=== PATIENT | female | born 1955 | race African-American/Black ===

== ENCOUNTER 2022-12-17 08:36 | Outpatient (AMB) | payer BC, MEDICAID, SELFPAY ==
--- NOTE | 2022-12-17 08:42 | A.OFFVIS_ITS ---
Intake VS Expanded 12/17/22 08:45 12/23/22 11:12 Height 5 ft 3 in 5 ft 3 in Weight 155 lb 3.287 oz 155 lb BMI 27.5 27.5 Intake Visit Reasons: Pre-DM HPI Nutrition Presentation Details Pt presents for MNT for Pre DM. Pt was referred by ZANDRA Bonilla Pt reports working on diet modification, reducing on sugar intake. Pt has questions regarding carbohydrates and meal preparations. IIG-Zjzlbgd-Xw.Jeor Equation Height 5 ft 3 in Weight 155 lb Resting Metabolic Rate 1216.77 Calculated Activity Level Mild Activity Calories Needed to Maintain Weight 1673.06 Diagnosis Nutrition problem #1 food nutri know defi As related to (etiology) #1 diagnosis As evidenced by (sign/symptom) #1 no prior educ - nutri rec Most Recent Diabetes Results: No Data to Display Assessment & Plan Assessment & Plan (1) Pre-diabetes: Code(s): R73.03 - Prediabetes Plan wt : 77kg Est kcal needs as per MSJ: 1700 (40% carb, 30% protein/fat) Est fluid needs as per 25-30 ml/d: 1900 Est prot per day as per 1 g/kg bw: 77 Recommend fiber intake : 8-10 g per day and gradually increase to 25-28 g per day for women and 35-38 g for men or as tolerated Recommend sodium intake per day : less than 2000 mg Educated patient on: ( R = reviewed V = verbalizes understanding N/R = needs review N/A = not applicable * Food sources of carbohydrate, adequate serving sizes and its role in various health conditions: R * Differences between complex carbohydrates a simple carbohydrates, role of fiber in diet: R * Differences between types of fats and role in diet (mono on saturated fat fatty acids, saturated fatty acids, trans fats): R * Food sources of sodium in salt and healthy modifications for heart health in kidney health: R V R/V * Vitamins and minerals: R * Healthy plate method concept: R * Physical activity: Benefits a precaution: R * Hypoglycemia protocol (rule of 15): R * Dietary prevention of Hyperglycemia: R Patient Instructions: Follow healthy plate method at dinner, reduce total carb at meal to 45 g following healthy plate method Coding Level of Care Code Nutr Indiv Intake (62088) Diagnoses Pre-diabetes R73.03 Time Spent (min) 30
[2022-12-17 08:45] VITALS: BMI 27.5
[2022-12-23 11:12] VITALS: BMI 27.5
== END 2022-12-17 09:22 | disposition home or self-care (01) ==
LOC: HO.ENCR 08:36
PROVIDERS: PCP Physician Assistant; Visit Provider Dietitian, Registered
DX: R73.03 Prediabetes (principal)

== ENCOUNTER → 2022-12-17 08:36 | Outpatient (BNVA) | payer BC, MEDICAID, SELFPAY | PROVIDERS: PCP Physician Assistant; Visit Provider Dietitian, Registered | DX: R73.03 Prediabetes (principal); Z71.3 Dietary counseling and surveillance | CPT/HCPCS: 97802 ==

== ENCOUNTER 2023-03-17 08:12 | Outpatient (AMB) | payer BC, MEDICAID, SELFPAY ==
[2023-03-17 08:36] VITALS: BMI 22.5
--- NOTE | 2023-03-17 08:36 | A.OFFVIS_ITS ---
Intake VS Expanded 03/17/23 08:36 Height 5 ft 7 in Weight 143 lb 11.862 oz BMI 22.5 Intake Visit Reasons: pre dm HPI Nutrition Presentation Details Pt presents for MNT f/u for Pre DM. Pt reports doing well, choosing a variety of foods and reducing portion of starches/fried/sweets. Pt reports feeling good and motivated Pt reports varying foods and including higher fiber foods (fruit/veg, nuts) Including fish at least twice/week Beverages: water, low fat milk and milk alternatives (64 oz) Physical movement at work: 6 hours takes a daily multivitamin, vitamin E and vitamin D- reports no constipation no diarrhea reports feeling well, no concerns expressed Most Recent Diabetes Results: No Data to Display Assessment & Plan Assessment & Plan (1) Pre-diabetes: Code(s): R73.03 - Prediabetes Plan wt : 77kg (65 kg 03/17/2023) Est kcal needs as per MSJ: 1700 (40% carb, 30% protein/fat) Est fluid needs as per 25-30 ml/d: 1900 Est prot per day as per 1 g/kg bw: 65 Recommend fiber intake : 8-10 g per day and gradually increase to 25-28 g per day for women and 35-38 g for men or as tolerated Recommend sodium intake per day : less than 2000 mg Educated patient on: ( R = reviewed V = verbalizes understanding N/R = needs review N/A = not applicable * Food sources of carbohydrate, adequate serving sizes and its role in various health conditions: R * Differences between complex carbohydrates a simple carbohydrates, role of fiber in diet: R ,V * Differences between types of fats and role in diet (mono on saturated fat fatty acids, saturated fatty acids, trans fats): R ,V * Food sources of sodium in salt and healthy modifications for heart health in kidney health: R V R/V * Vitamins and minerals: R * Healthy plate method concept: R , V * Physical activity: Benefits a precaution: R , V * Hypoglycemia protocol (rule of 15): R * Dietary prevention of Hyperglycemia: R Patient Instructions: Continue following healthy plate method including a variety of foods Keep hydrated by having milk, water, diluted juice with water recommend for PCP to monitor blood work for Vit E due to Pt reporting taking vitamin E supplements for years, to prevent vitamin E toxicity Coding Level of Care Code Nutr Indiv Subseq (77271) Diagnoses Pre-diabetes R73.03 Time Spent (min) 30
== END 2023-03-17 09:09 | disposition home or self-care (01) ==
PROVIDERS: PCP Physician Assistant; Visit Provider Dietitian, Registered
DX: R73.03 Prediabetes (principal)

== ENCOUNTER → 2023-03-17 08:12 | Outpatient (BNVA) | payer BC, OTHER, SELFPAY | PROVIDERS: PCP Physician Assistant; Visit Provider Dietitian, Registered | DX: Z71.3 Dietary counseling and surveillance (principal); R73.03 Prediabetes | CPT/HCPCS: 97803 ==

== ENCOUNTER 2023-06-23 08:03 | Outpatient (AMB) | payer BC, MEDICAID, SELFPAY ==
[2023-06-23 08:36] VITALS: BMI 22.3
--- NOTE | 2023-06-23 08:36 | A.OFFVIS_ITS ---
Intake VS Expanded 06/23/23 08:36 Height 5 ft 7 in Weight 142 lb 10.225 oz BMI 22.3 Intake Visit Reasons: Pre DM/CONFIRMED HPI Nutrition Presentation Details Pt presents for MNT follow-up for Pre DM Pt reports keeping physically active at work, on her feet , walking around the store, going up and down this is there is at work for 6-8 hr per day. Pt reports doing well, eating a varied he of foods, choosing high-fiber foods and reducing on pastries and high sugar foods. Reports having 3 meals a day, following healthy plate method including fish twice/wk Reports reading food labels and needs review on meaning of% daily Valium Most Recent Diabetes Results: No Data to Display Assessment & Plan Assessment & Plan (1) Pre-diabetes: Code(s): R73.03 - Prediabetes Plan wt : 77kg (65 kg 03/17/2023), 65 kg (06/2023) Est kcal needs as per MSJ: 1700 (40% carb, 30% protein/fat) Est fluid needs as per 25-30 ml/d: 1900 Est prot per day as per 1 g/kg bw: 65 Recommend fiber intake : 8-10 g per day and gradually increase to 25-28 g per day for women and 35-38 g for men or as tolerated Recommend sodium intake per day : less than 2000 mg Educated patient on: ( R = reviewed V = verbalizes understanding N/R = needs review N/A = not applicable * Food sources of carbohydrate, adequate serving sizes and its role in various health conditions: R * Differences between complex carbohydrates a simple carbohydrates, role of fiber in diet: R ,V * Differences between types of fats and role in diet (mono on saturated fat fatty acids, saturated fatty acids, trans fats): R ,V * Food sources of sodium in salt and healthy modifications for heart health in kidney health: R * Review reading food labels, % daily Value : R commended calcium intake for 67-year-old woman recommended * Vitamins and minerals: R, v * Healthy plate method concept: R , V * Physical activity: Benefits a precaution: R , V * Hypoglycemia protocol (rule of 15): R * Dietary prevention of Hyperglycemia: R, v Patient Instructions: Continue working choosing a variety of foods following healthy plate method Include foods with calcium (yogurt, low sodium cheese, spinach, broccoli , milk, edamame, almonds)- recommendation is to 1200 mg per day Include foods with vitamin-D- recommendation is 600 IU per day Coding Level of Care Code Nutr Indiv Subseq (32375) Diagnoses Pre-diabetes R73.03 Time Spent (min) 30
== END 2023-06-23 09:13 | disposition home or self-care (01) ==
PROVIDERS: PCP Physician Assistant; Visit Provider Dietitian, Registered
DX: R73.03 Prediabetes (principal)

== ENCOUNTER → 2023-06-23 08:03 | Outpatient (BNVA) | payer BC, SELFPAY | PROVIDERS: PCP Physician Assistant; Visit Provider Dietitian, Registered | DX: R73.03 Prediabetes (principal); Z71.3 Dietary counseling and surveillance | CPT/HCPCS: 97803 ==

== ENCOUNTER 2023-12-29 08:03 | Outpatient (AMB) | payer BC, MEDICAID, SELFPAY ==
--- NOTE | 2023-12-29 08:33 | A.OFFVIS_ITS ---
VS Expanded 12/29/23 08:34 Height 5 ft 7 in Weight 151 lb 7.321 oz BMI 23.7 Intake Visit Reasons: pre dm/CONFIRMED Nutrition Presentation Details: Pt presents for MNT f/u for pre DM Pt reports most recent A1c at 5.8% (10/2023) Pt has questions regarding calcium supplements , reports she was diagnosed with osteopenia Pt reports trying different foods/recipes high in fiber water: 24 oz/d fruits: 2-3/d ve-4 serving/d dairy: 2-3 serving (varies between cow's and alternatives physical activity: 2 times a week (at the gym), + keeps active on a daily basis etoh: 1 serving/month BS Monitoring Most Recent Diabetes Results: No Data to Display Assessment & Plan Assessment & Plan (1) Pre-diabetes: Code(s): R73.03 - Prediabetes Category: Medical Plan wt : 77kg (65 kg 03/17/2023), 65 kg (06/2023), (68 kg - 12/2023) Est kcal needs as per MSJ: 1700 (40% carb, 30% protein/fat) Est fluid needs as per 25-30 ml/d: 1900 Est prot per day as per 1 g/kg bw: 65 Recommend fiber intake : 8-10 g per day and gradually increase to 25-28 g per day for women and 35-38 g for men or as tolerated Recommend sodium intake per day : less than 2000 mg Educated patient on: ( R = reviewed V = verbalizes understanding N/R = needs review N/A = not applicable * Food sources of carbohydrate, adequate serving sizes and its role in various health conditions: R * Differences between complex carbohydrates a simple carbohydrates, role of fiber in diet: R ,V * Differences between types of fats and role in diet (mono on saturated fat fatty acids, saturated fatty acids, trans fats): R ,V * Food sources of sodium in salt and healthy modifications for heart health in kidney health: R * Review reading food labels, % daily Value : R - calcium intake for 67-year-old woman discussed * Vitamins and minerals: R, v * Healthy plate method concept: R , V * Physical activity: Benefits a precaution: R , V * Hypoglycemia protocol (rule of 15): R * Dietary prevention of Hyperglycemia: R, v Patient Instructions: Have a variety of foods following healthy plate method Include food sources of calcium (spinach, chickpeas, sardines, nuts, seeds , calcium fortified foods/beverages - aim at 1200 mg of calcium per day Keep hydrated by having water with meals/snacks keep physically active Coding Level of Care Code Nutr Indiv Subseq (27313) Diagnoses Pre-diabetes R73.03 Time Spent (min) 30
[2023-12-29 08:34] VITALS: BMI 23.7
== END 2023-12-29 09:19 | disposition home or self-care (01) ==
PROVIDERS: PCP Physician Assistant; Visit Provider Dietitian, Registered
DX: R73.03 Prediabetes (principal)

== ENCOUNTER → 2023-12-29 08:03 | Outpatient (BNVA) | payer BC, SELFPAY | PROVIDERS: PCP Physician Assistant; Visit Provider Dietitian, Registered | DX: R73.03 Prediabetes (principal); Z71.3 Dietary counseling and surveillance | CPT/HCPCS: 97803 ==

== ENCOUNTER 2024-08-09 09:27 | Outpatient (AMB) | payer BC, SELFPAY ==
--- NOTE | 2024-08-09 09:39 | A.OFFVIS_ITS ---
VS Expanded 08/09/24 09:58 Height 5 ft 7 in Weight 152 lb 8.958 oz BMI 23.9 Intake Visit Reasons: pre DM Nutrition Presentation Details: Pt presents for MNT for pre DM Pt reports trying new recipes lower carb/high fiber Reports trying intermittent fasting , on and off food frequency Fluids: water, diluted juices with water Dairy: 2-3 /d starches 25 serving/d vegetables: 2-3 serving/d fish 1x/wk fruits: 1-3/d Physical activity exercise routine every other day , 30-40min + walking at work BS Monitoring Most Recent Diabetes Results: No Data to Display Assessment & Plan Assessment & Plan (1) Pre-diabetes: Code(s): R73.03 - Prediabetes Category: Medical Plan wt : 77kg (65 kg 03/17/2023), 65 kg (06/2023), (68 kg - 12/2023), 69 kg (08/03) Est kcal needs as per MSJ: 1700 (40% carb, 30% protein/fat) Est fluid needs as per 25-30 ml/d: 1900 Est prot per day as per 1 g/kg bw: 65 Recommend fiber intake : 8-10 g per day and gradually increase to 25-28 g per day for women and 35-38 g for men or as tolerated Recommend sodium intake per day : less than 2000 mg Educated patient on: ( R = reviewed V = verbalizes understanding N/R = needs review N/A = not applicable * Food sources of carbohydrate, adequate serving sizes and its role in various health conditions: R * Differences between complex carbohydrates a simple carbohydrates, role of fiber in diet: R ,V * Differences between types of fats and role in diet (mono on saturated fat fatty acids, saturated fatty acids, trans fats): R ,V * Food sources of sodium in salt and healthy modifications for heart health in kidney health: R * Review reading food labels, % daily Value : R - calcium intake for 67-year-old woman discussed * Vitamins and minerals: R, v * Healthy plate method concept: R , V * Physical activity: Benefits a precaution: R , V * Hypoglycemia protocol (rule of 15): R * Dietary prevention of Hyperglycemia: R, v Patient Instructions: Keep hydrated aim at 6-8 cups of low sugar beverages (water, fruit/herb infused flavored, low fat milk, decaf tea Continue watching portion of total carb , 30-45 g carb per meal or less, choose fiber rich foods (whole grains, legumes, vegetable fruits) Coding Level of Care Code Nutr Indiv Subseq (40897) Diagnoses Pre-diabetes R73.03 Time Spent (min) 30
[2024-08-09 09:58] VITALS: BMI 23.9
== END 2024-08-09 10:17 | disposition home or self-care (01) ==
LOC: HO.ENCR 09:28
PROVIDERS: PCP Physician Assistant; Visit Provider Dietitian, Registered
DX: R73.03 Prediabetes (principal)

== ENCOUNTER → 2024-08-09 09:27 | Outpatient (BNVA) | payer BC, SELFPAY | PROVIDERS: PCP Physician Assistant; Visit Provider Dietitian, Registered | DX: R73.03 Prediabetes (principal); Z71.3 Dietary counseling and surveillance | CPT/HCPCS: 97803 ==

== ENCOUNTER 2025-02-07 08:51 | Outpatient (AMB) | payer BC, SELFPAY ==
[2025-02-07 08:54] VITALS: BMI 24.6
--- NOTE | 2025-02-07 08:54 | A.OFFVIS_ITS ---
VS Expanded 02/07/25 08:54 Height 5 ft 7 in Weight 157 lb 2.328 oz BMI 24.6 Intake Visit Reasons: Pre DM Medication List - Last Reconciled 02/14/[address], LDN atorvastatin (Lipitor) 10 mg PO BEDTIME lisinopril 5 mg PO DAILY methocarbamol 500 mg PO BEDTIME Nutrition Presentation Details: Pt presents for MNT for Pre DM Physical activity: 3 times/wk , 30-45 min , combination of anaerobic/aerobic exercises Pt reports dietary indiscretion but recognizes importance to resume meal planning/portion sizes Assessment & Plan Assessment & Plan (1) Pre-diabetes: Code(s): R73.03 - Prediabetes Category: Medical Plan wt : 77kg (65 kg 03/17/2023), 65 kg (06/2023), (68 kg - 12/2023), 69 kg (08/03), 71 kg(03/05) Est kcal needs as per MSJ: 1700 (40% carb, 30% protein/fat) Est fluid needs as per 25-30 ml/d: 1900 Est prot per day as per 1 g/kg bw: 65 Recommend fiber intake : 8-10 g per day and gradually increase to 25-28 g per day for women and 35-38 g for men or as tolerated Recommend sodium intake per day : less than 2000 mg Educated patient on: ( R = reviewed V = verbalizes understanding N/R = needs review N/A = not applicable * Food sources of carbohydrate, adequate serving sizes and its role in various health conditions: R * Differences between complex carbohydrates a simple carbohydrates, role of fiber in diet: R ,V * Differences between types of fats and role in diet (mono on saturated fat fatty acids, saturated fatty acids, trans fats): R ,V * Food sources of sodium in salt and healthy modifications for heart health in kidney health: R * Review reading food labels, % daily Value : R - calcium intake for 67-year-old woman discussed * Vitamins and minerals: R, v * Healthy plate method concept: R , V * Physical activity: Benefits a precaution: R , V * Hypoglycemia protocol (rule of 15): R * Dietary prevention of Hyperglycemia: R, v Patient Instructions: Include omega 3 fatty acids: include fish at least twice a week, snack on unsalted nuts a couple of times a week Include non starchy vegetables at dinner, increasing fiber keep hydrated by having water with meals and snacks Coding Level of Care Code Nutr Indiv Subseq (76352) Diagnoses Pre-diabetes R73.03 Time Spent (min) 30
--- OUTSIDE RECORDS SUMMARY | 2025-02-07 09:20 | XMS_ITS | Encounter Summary ---
Author Organization [facility] Address [address] [place] [address] Care Team Providers Care Account Processor Name Role Phone Diego Piedra MD Primary Care Provider [phone] Encounter Details Date Type Department Care Team ([facility] st Contact Info) Description 01/14/2025 Telephone Internal Medicine - [place] 175 [facility] [address] [place] [phone] Diego Piedra MD [address] [phone] Social History Tobacco Use Types Packs/Day Years Used Date Smoking Tobacco: Former Smokeless Tobacco: Never Alcohol Use Standard Drinks/Week Comments Yes 0 (1 standard drink = 0.6 oz pur e alcohol) Comments No Sex and Gender Information Value Date Recorded Sex Assigned at Female 06/14/2024 3:51 PM EST Legal Sex Female 7:57 AM EST Gender Identity Female 06/14/2024 3:51 PM EST Sexual Orientation Straight 06/14/2024 3: 51 PM EST documented as of this encounter Progress Notes * Gabi Shoemaker MA - 01/14/2025 2:02 PM EDT Spoke to patient and she's aware. * Diego Piedra MD - 01/14/2025 12:57 PM EDT Will order the lab during the visit * Gabi Shoemaker MA - 01/14/2025 12:18 PM EDT Patient is asking for blood work orders for her upcoming appt. * Pamela Zepeda - 01/14/2025 11:44 AM EDT Needs lab orders for upcoming AWV on 01/27/25 Needs A1C to check blood sugars for prediabetic status Please all when ready at [phone] Ty documented in this encounter Plan of Treatment Upcoming Encounters Date Type Department Care Team (Late st Contact Info) Description 02/14/2025 10:45 AM EDT Office Visit Orthopedic Surgery - [place] [id number] [phone] Zack Templeton DPM [address] [phone] documented as of this encounter Visit Diagnoses Not on filedocumented in this encounter Care Teams Account Processor Relationship Specialty Start Date End Date Diego Piedra MD 175 [facility] [address] [place] [address] PCP - General 01/16/22 documented as of this encounter
--- OUTSIDE RECORDS SUMMARY | 2025-02-07 09:20 | XMS_ITS | Encounter Summary ---
Author Organization [facility] Address [address] [place] [address] Care Team Providers Care Automatic Trimming Sewer Name Role Phone Diego Piedra MD Primary Care Provider [phone] Encounter Details Date Type Department Care Team ([facility] st Contact Info) Description 02/01/2025 Telephone Internal Medicine - [place] 175 [facility] [address] [place] [address] Tremayne Zhu MA Social History Tobacco Use Types Packs/Day Years Used Date Smoking Tobacco: Former Smokeless Tobacco: Never Alcohol Use Standard Drinks/Week Comments Yes 0 (1 standard drink = 0.6 oz pur e alcohol) Housing Instability Answer Date Recorde d Are you worried that in the next 2 months you may not have stable housing? No 01/31/2025 Food Access & Nutrition Answer Date Rec orded Do you have access to a vari ety of food including fruits and vegetables? Yes 01/31/2025 Access to Healthcare Answer Date Record ed Within the last 3 months, ho gypsy many times did you visit the emergency department for your medical care? 9 01/31/2025 Health Literacy Answer Date Recorded How often do you need to hav e someone help you when you read instructions, pamphlets, or other written material from your doctor or pharmacy? Sometimes 01/31/2025 Caregiver: How often do you need to have someone help you when you read instructions, pamphlets, or other written material from your doctor or pharmacy? Not on file 01/31/2025 Financial Risk Answer Date Recorded How hard is it for you to pa y for the very basics like food, housing, medical care, and air conditioning / heating? Not very hard 01/31/2025 Transportation Answer Date Recorded Has the lack of transportati on kept you from meetings, work, or from getting things needed for daily living? Unable to respond 01/31/2025 Has the lack of transportati on kept you from medical appointments or from getting medications? Unable to respond 01/31/2025 Social Isolation Answer Date Recorded How often do you feel lonely or isolated from th ose around you? Rarely 01/31/2025 Food Risk Answer Date Recorded Within the past 12 months we worried whether our food would run out before we got money to buy more. Never true 01/31/2025 Within the past 12 months th e food we bought just didn't last and we didn't have money to get more. Never true 01/31/2025 Dependent Care Answer Date Recorded Do you need help finding or paying for care for your loved ones. For example, child protective services specialist or elderly care for an older adult? No 01/31/2025 Education Answer Date Recorded Do you think completing more education or training, like finishing a GED, going to college, or learning a trade, would be helpful for you? No 01/31/2025 Employment and Income Answer Date Recor ded During the last four weeks, have you been actively looking for work? No 01/31/2025 Living Situation Answer Date Recorded What is your living situation? Unrecognized valu e 01/31/2025 Comments No Sex and Gender Information Value Date Recorded Sex Assigned at Female 06/14/2024 3:51 PM EST Legal Sex Female 7:57 AM EST Gender Identity Female 06/14/2024 3:51 PM EST Sexual Orientation Straight 06/14/2024 3: 51 PM EST documented as of this encounter Progress Notes * ZANDRA Westfall - 02/07/2025 8:41 AM EDT Letter done and sent to her [employer] portal. * Tremayne Zhu MA - 02/04/2025 10:21 AM EDT Spoke to patient , patient can't live no more then 40 lbs at a time. Patient also requesting the letter to say that she is unable to work Friday . Friday and Fridaysafter 4pm because patient goes to Physical therapy [facility] called [employer] to help with strengthening . * ZANDRA Westfall - 02/03/2025 11:49 AM EDT I had asked her at the visit how much she could lift and she was unable to answer me. I wanted to know for the note so I could specify what not to carry over, ie 10 pounds or other weight?? * Tremayne Zhu MA - 02/03/2025 9:41 AM EDT Patient needs a letter for work stating she is unable to lift heavy (part of her job duties includelifting and carrying boxes ) . Patient currently going to [employer] a gym due to medical reasons ad trying to strengthen herself. * ZANDRA Westfall - 02/02/2025 8:46 AM EDT She had an appointment with me yesterday and was having a hard time explaining what the letter needed to say, I think because of the language barrier. Can you ask specifically what I need to write inthe letter. Thank you. * Diego Piedra MD - 02/01/2025 5:16 PM EDT Please provide her appointment to discuss about the letter. * Tremayne Zhu MA - 02/01/2025 4:05 PM EDT Patient requesting a letter of restriction for heavy lifting for work . documented in this encounter Plan of Treatment Upcoming Encounters Date Type Department Care Team (Late st Contact Info) Description 02/14/2025 10:45 AM EDT Office Visit Orthopedic Surgery - [place] [address] 175 [facility] [address] [place] [phone] Zack Templeton DPM [address] [phone] documented as of this encounter Visit Diagnoses Not on filedocumented in this encounter Additional Health Concerns Assessment Noted Time PHQ-9 Depression Total Score: 0 02/01/20 25 5:25 PM EDT documented as of this encounter Care Teams Automatic Trimming Sewer Relationship Specialty Start Date End Date Diego Piedra MD 175 [facility] 200 [place] [phone] PCP - General 01/16/22 documented as of this encounter
--- OUTSIDE RECORDS SUMMARY | 2025-02-07 09:20 | XMS_ITS | Clinical Summary ---
Author Organization [facility] Address [address] [place] [address] Phone Care Team Providers Care Salvage Mechanic Name Role Phone Diego Piedra MD Primary Care Provider [phone] Allergies No known active allergies Medications atorvastatin (LIPITOR) 10 mg tablet Take 1 tablet by mouth once daily 90 tablet 5 Active lisinopriL (PRINIVIL,ZESTR IL) 5 mg tablet Take 1 tablet by mouth once daily 90 tablet 5 Active methocarbamoL (ROBAXIN) 500 mg tablet Take 1 tablet (500 mg total) by mouth 3 (three) times a day if needed for muscle spasms for up to 10 days. 20 tablet 5 02/02/20 25 Discontinu ed(Therapy completed) Active Problems Problem Noted Date Diagnosed Date Prediabetes 02/01/2025 Assessment & Plan (02/02/2025 8:42 AM EDT): Orders: Hemoglobin A1c; Future Foot pain, bilateral 06/10/2022 Hearing deficit, bilateral 03/12/2022 Osteoarthritis 03/12/2022 Hypertension Overview (02/01/2025): DX:Hypertension Assessment & Plan (02/02/2025 8:42 AM EDT): Orders: Comprehensive metabolic panel; Future Microalbumin creatinine urine ratio; Future Magnesium; Future Hyperlipidemia Overview (02/01/2025): DX:Hyperlipidemia Assessment & Plan (02/02/2025 8:42 AM EDT): Orders: Comprehensive metabolic panel; Future Lipid panel with reflex to direct LDL; Future Encounters Date Type Department Care Team Description 02/01/2025 3:30 PM EDT Office Visit Internal Medicine [address] [address] Shirin Zavala PA Routine general medical examination at a health care facility (Primary Dx); Primary hypertension; Pure hypercholesterolemi a; Prediabetes; Health care maintenance; Vitamin D deficiency 02/01/2025 Telephone Internal Medicine [address] [address] Tremayne Zhu MA 01/14/2025 Telephone Internal Medicine [address] [address] Diego Piedra MD 01/04/2025 Telephone Internal Medicine [facility] [address] [address] Kali Poe MA 01/04/2025 Telephone Internal Medicine [address] [address] Kali Poe MA 01/03/2025 7:30 AM EDT - 01/03/2025 11:59 PM EDT Hospital Encounter Radiology Department - [address] [address] Encounter for screening mammogram for malignant neoplasm of breast Discharge Disposition: Home or Self Care from Last 3 Months Surgical History Surgery Date Site/Laterality Comments CATARACT EXTRACTION Bilateral PROCEDURE: HISTORICAL CATARACT REMOVAL HYSTERECTOMY 11/2020 PROCEDURE: HISTORICAL HYSTERECTOMY BREAST SURGERY PROCEDURE: RI UNLISTED PROCEDURE BREAST; COMMENT: breast lift Medical History Medical History Date Comments Hypertension 03/12/2022 DX:Hypertension Hyperlipidemia 03/12/2022 DX:Hyperlipidemi a Osteoarthritis 03/12/2022 DX:Osteoarthriti s Hearing deficit, bilateral 03/12/2022 DX:He aring deficit, bilateral Family History Medical History Relation Name Comments No Known Problems Father Other: heart Mother Hypertension Sister Breast cancer Neg Hx Ovarian cancer Neg Hx Relation Name Status Comments Daughter Alive Father Mother Sister Alive Social History Tobacco Use Types Packs/Day Years [...] ed Within the last 3 months, ho w many times did you visit the emergency [...] care for your loved ones. For example, registered nurse maternal child or elderly care for an older adult? [...] Orientation Straight 06/14/2024 3: 51 PM EST Obstetrics History Para Term AB IAB SAB Ectopic Multiple Livin g Live Births 2 2 2 2 Date Outcome GA Total Labor Labor/2nd/3rd Weight Sex Type Anes PTL Delia A1 A5 Name Clin Term Term Last Filed Vital Signs Vital Sign Reading Time Taken Comments Blood Pressure 132/62 02/01/2025 3:30 PM EDT Pulse 80 02/01/2025 3:30 PM EDT Temperature 36.6 C (97.8 F) 02/01/2025 3:30 PM EDT Respiratory Rate 18 06/14/2024 10:33 AM EST Oxygen Saturation 98% 02/01/2025 3:30 PM EDT Inhaled Oxygen Concentration - - Weight 71.7 kg (158 lb) 02/01/2025 3:30 PM EDT Height 160 cm (5' 3 ) 02/01/2025 3:30 PM EDT Body Mass Index 27.99 02/01/2025 3:30 PM EDT Plan of Treatment Upcoming Encounters Date Type Department Care Team (Late st Contact Info) Description 02/14/2025 10:45 AM EDT Office Visit Orthopedic Surgery - [place] [address] [address] Zack Templetno, DPM [address] [address] Health Maintenance Due Date Last Done Comments DTaP,Tdap,and Td Vaccines (1 - Tdap) 1975 Zoster Vaccines (1 of 2) 2006 Cholesterol Screening (Lipid Panel) 04/14/2022 Hepatitis C Screening 04/14/2022 Hypertension/CHF/CAD Annual BMP Blood Test 06/10/2023 COVID-19 Vaccine (1 - season) 2025 Influenza Vaccine (#1) 2025 06/09/2023 Social Influencers of Health Screening 01/31/2026 01/31/2025 Falls Risk Assessment 02/01/2026 02/01/2025 Medicare Annual Wellness Visit 02/01/2026 02/01/2025 Breast Cancer Screening 01/03/2027 01/04/20, 12/29/2023, 12/29/2023, Additional history exists RSV Immunization Adult Patients (1 - 1-dose 75+ series) 2031 Colorectal Cancer Screening: Colonoscopy 01/20/2033 01/20/2023 Osteoporosis Screening (Bone Density Screening) 06/27/2033 06/27/2023 Pneumococcal Vaccine: 50+ Years Completed 06/09/2023 Depression Screening Completed 01/31/2025 HIB Vaccines Aged Out No longer eligi ble based on patient's age to complete this topic HPV Vaccines Aged Out No longer eligi ble based on patient's age to complete this topic Hepatitis A Vaccines Aged Out No long er eligible based on patient's age to complete this topic Hepatitis B Vaccines Aged Out No long er eligible based on patient's age to complete this topic IPV Vaccines Aged Out No longer eligi ble based on patient's age to complete this topic MMR Vaccines Aged Out No longer eligi ble based on patient's age to complete this topic Meningococcal ACWY Vaccine Aged Out N o longer eligible based on patient's age to complete this topic Meningococcal B Vaccine Aged Out No l onger eligible based on patient's age to complete this topic RSV Immunization Patients Under 20 months Aged Out No longer eligible based on patient's age to complete this topic Varicella Vaccines Aged Out No longer eligible based on patient's age to complete this topic Procedures Procedure Name Priority Date/Time Associated Diagnosis Comments MG MAMMO DIGITAL SCREENING W GABRIELE BILAT Routine 01/03/2025 7:51 AM EDT Encounter for screening mammogram for malignant neoplasm of breast ELLIE DEXA AXIAL SKELETON Routine 06/27/2023 7:48 AM EST Other specified disorders of bone density and structure, other site HM COLONOSCOPY Routine 01/20/2023 from Last 3 Months or Most Recently Relevant to Health Maintenance Results * MG Mammo Digital Screening w Gabriele bilat (01/03/2025 7:51 AM EDT) Anatomical Region Laterality Modality Breast Bilateral Mammography 01/04/2025 11:2 7 AM EDT Impressions 01/04/2025 11:32 AM EDT Benign. BI-RADS CATEGORY: 2 - BENIGN RECOMMENDATION: Screening bilateral mammogram is recommended in 1 year. Mammo Location: [facility], [address] [place] [address], [address], . -------- FINAL REPORT -------- Dictated By: Jessica Rosales Dictated Date: 01/04/2025 11:27 ET Assigned Physician: Jessica Rosales Reviewed and Electronically Signed By: Jessica Rosales Signed Date: 01/04/2025 11:32 ET Workstation ID: [id number] Transcribed By: Self Edit Transcribed Date: 01/04/2025 11:27 ET Narrative 01/04/2025 11:32 AM EDT CLINICAL: 69 years old, Female, routine annual exam. COMPARISON: Mammograms dating back to 08/22/2021 with most recent of 12/29/2023. TECHNIQUE: Bilateral MLO and CC views were obtained digitally with 3-D mammogram (digital breast tomosynthesis). Computer-aided detection was utilized in evaluation of this exam (CAD). FINDINGS: There is no evidence of suspicious mass or architectural distortion. No worrisome calcifications are evident. Benign focal asymmetries in both outer breasts are unchanged. There has been no significant change from prior exam(s). BREAST DENSITY: B - There are scattered areas of fibroglandular density. Procedure Note Jessica Rosales MD - 01/04/2025 CLINICAL: 69 years old, Female, routine annual exam. COMPARISON: Mammograms dating back to 08/22/2021 with most recent of12/29/2023. TECHNIQUE: Bilateral MLO and CC views were obtained digitally with 3-Dmammogram (digital breast tomosynthesis). Computer-aided detection wasutilized in evaluation of this exam (CAD). FINDINGS: There is no evidence of suspicious mass or architectural distortion. Noworrisome calcifications are evident. Benign focal asymmetries in bothouter breasts are unchanged. There has been no significant change fromprior exam(s). BREAST DENSITY: B - There are scattered areas of fibroglandular density. IMPRESSION: Benign. BI-RADS CATEGORY: 2 - BENIGN RECOMMENDATION: Screening bilateral mammogram is recommended in 1 year. Mammo Location: [facility], [address] [place] [address], [address], . -------- FINAL REPORT -------- Dictated By: Jessica Rosales Dictated Date: 01/04/2025 11:27 ET Assigned Physician: Jessica Rosales Reviewed and Electronically Signed By: Jessica Rosales Signed Date: 01/04/2025 11:32 ET Workstation ID: [id number] Transcribed By: Self Edit Transcribed Date: 01/04/2025 11:27 ET Charmaine Peters CNM IMG BI PROCEDURES Final Resul t * ELLIE DEXA AXIAL SKELETON (06/27/2023 7:48 AM EST) Anatomical Region Laterality Modality Mammography 06/27/2023 7:14 AM EST Narrative 06/27/2023 7:48 AM EST [facility] Diagnostic Imaging Department [address] [place] [address] Patient: ELIZA GIORDANO/Age/Sex: 1955 - 67 - F Unit#: [id number] Location/Status: SPDIMAM/REG CLI Mnemonic/Ordering Site: MAMDEXAAX/SPMAM Ordering Physician: DIEGO PIEDRA Ellie Dexa Axial Skeleton - 06/27/23742 Report Status:Signed HISTORY: The patient is a 67-year-old postmenopausal female with clinical concern for metabolic bone disease. FINDINGS: Dual energy x-ray absorptiometry of the lumbar spine and femurs is performed. The mean bone mineral density at L1-2 is 0.930 gm/cm2 which is 80% of that of young normals and 96% of that of age matched controls. This yields a T- score of -2.0 and a Z-score of -0.4 which is diagnostic of osteopenia. The mean bone mineral density of the femurs bilaterally is 0.866 gm/cm2 which is 86% of that of young normals and 102% of that of age matched controls. This yields a T-score of -1.1 and a Z-score of 0.2 which is diagnostic of osteopenia. IMPRESSION: 1. Osteopenia. 2. FRAX analysis yields a 10-year probability of major osteoporotic fracture of 4.9% and a 10-year probability of hip fracture of 0.5%. Code 24077 Dictating Physician: CHAN OLMOS MD Electronically Signed by: CHAN OLMOS MD Dic Date/Time: 06/27/23747 Sign date/Time: 06/27/23747 Procedure Note Chan Olmos MD - 12/29/2023 [facility] Diagnostic Imaging Department [address] [place] [address] Patient: ELIZA GIORDANO /Age/Sex: 1955 - 67 - F Unit#: [id number] Location/Status: SPDIMAM/REG CLI Mnemonic[facility] Ordering Physician: DIEGO PIEDRA [facility] Dexa Axial Skeleton - 06/27/23742 Report Status:Signed HISTORY: The patient is a 67-year-old postmenopausal female withclinical concern for metabolic bone disease. FINDINGS: Dual energy x-ray absorptiometry of the lumbar spine and femursis performed. The mean bone mineral density at L1-2 is 0.930 gm/cm2 which is80% of that of young normals and 96% of that of age matched controls. This yieldsa T- score of -2.0 and a Z-score of -0.4 which is diagnostic of osteopenia. The mean bone mineral density of the femurs bilaterally is 0.866 gm/hu3qifwf is 86% of that of young normals and 102% of that of age matched controls.This yields a T-score of -1.1 and a Z-score of 0.2 which is diagnostic ofosteopenia. IMPRESSION: 1. Osteopenia. 2. FRAX analysis yields a 10-year probability of major osteoporoticfracture of 4.9% and a 10-year probability of hip fracture of 0.5%. Code 04015 Dictating Physician: CHAN OLMOS MD Electronically Signed by: CHAN OLMOS MD Dic Date/Time: 06/27/23747 Sign date/Time: 06/27/23747 Diego Piedra MD IM BI PROCEDURES Final Result * Colonoscopy (01/20/2023) Colonoscopy abstract [facility] Anatomical Region Laterality Modality Other us Historical Provider HEALTH MAINTENANCE Final Result from Last 3 Months or Most Recently Relevant to Health Maintenance Insurance [place]IC[place] Care Teams Salvage Mechanic Relationship Specialty Start Date End Date Diego Piedra MD [address] [place] [phone] PCP - General 01/16/22
--- OUTSIDE RECORDS SUMMARY | 2025-02-07 09:20 | XMS_ITS | Encounter Summary ---
Author Organization [facility] [employer] Address [address] [place] [address] Care Team Providers Care Slab Miller Operator Name Role Phone Diego Piedra MD Primary Care Provider [phone] Reason for Visit * Reason Onset Date Comments Forms: Handicap Parking 01/04/2025 Encounter Details Date Type Department Care Team ([facility] st Contact Info) Description 01/04/2025 Telephone Internal Medicine [facility] [address] [facility] [address] [place] [phone] Kali Poe MA Social History Tobacco Use Types Packs/Day [...] loved ones. For example, child protective services social worker or elderly care for an older adult? [...] as of this encounter Progress Notes * Marzena Palm MA - 01/05/2025 4:20 PM EDT Patient needs to be seen before completing form. NOV 01/27/25 * Kali Poe MA - 01/04/2025 9:13 AM EDT Patient dropped off residential handicap parking application. Call for picker packer: [phone] documented in this encounter Plan of Treatment Upcoming Encounters Date Type Department Care Team ([facility] st Contact Info) Description 02/14/2025 10:45 AM EDT Office Visit Orthopedic Surgery - [place] [address] [address] Zack Templeton DPJuan [address] [address] documented as of this encounter Visit Diagnoses Not on filedocumented in this encounter Care Teams Slab Miller Operator Relationship Specialty Start Date End Date Diego Piedra MD [address] [facility] [address] [place] [address] PCP - General 01/16/22 documented as of this encounter
== END 2025-02-07 09:30 | disposition home or self-care (01) ==
LOC: HO.ENCR 08:52
PROVIDERS: PCP Physician Assistant; Visit Provider Dietitian, Registered
DX: R73.03 Prediabetes (principal)

== ENCOUNTER → 2025-02-07 08:51 | Outpatient (BNVA) | payer BC, SELFPAY | PROVIDERS: PCP Physician Assistant; Visit Provider Dietitian, Registered | DX: R73.03 Prediabetes (principal) | CPT/HCPCS: 97803 ==

== ENCOUNTER 2025-04-25 11:05 | Outpatient (AMB) | payer BC, MEDICAID, SELFPAY ==
[2025-04-25 11:13] VITALS: BMI 24.3
--- NOTE | 2025-04-25 11:13 | A.PHYSOV ---
Vital Signs 04/25/25 11:13 Height 5 ft 7 in Weight 155 lb BMI 24.3 Intake Visit Reasons: NPV Kay Ref- left sided sciatica Intake Note: Patient is a 69 year old female here today for a new patient office visit. Patient is having left sided sciatica pain. Corporate Accountant Required: Yes Corporate Accountant Name: arielle #[id number] Allergies No Known Allergies Allergy (Verified 04/25/25 11:15) HPI Comments Details: History of Present Illness, hourly sign language interpreter [id number] The patient is a 69 year old female presenting for evaluation of back pain with radiation into the left leg. She reports a long-standing history of intermittent pain that originates in her left buttock and radiates down to her foot. The pain is not currently present, with the last episode occurring approximately four days ago. About six years ago, she underwent physical therapy with electrical stimulation in [place]. She currently sees a chiropractor once a month for adjustments, exercises three times a week, and is not taking any analgesics for the pain. She also reports intermittent heel pain and a sensation of needles in her fingers, which occurs at times while she is walking at work. Patient denies any pain today. I reviewed the referring provider's no prior to consultation. Pain Description - Onset: The patient reports the pain began a long time ago. - Location: The pain is located in the left buttock. - Radiation: The pain radiates down to the left foot. - Character: The character of the back pain was not described, but she notes a separate sensation of needles in her fingers. - Timing: The pain is intermittent; she is not currently experiencing it and the last episode was about four days prior to the visit. - Exacerbating Factors: She sometimes feels pressure at work. - Relieving Factors: She undergoes monthly chiropractic adjustments. [facility] Social History (Updated 04/21/25 @ 09:43 by Darcy Scott MA) Alcohol intake: current Alcohol intake frequency: holidays/special occasions only Patient Tobacco Use Status: Former Tobacco user Review of Systems Narrative Review of Systems - Musculoskeletal: Reports a history of intermittent pain in the left buttock radiating to the foot. - Neurological: Reports an occasional needle-like sensation in her fingers. Denies numbness in the legs. - Constitutional: Denies current pain. Physical Exam Exam Exam: Physical Exam Lumbar Spine: Examination of her lumbar spine, there is no visible swelling or deformity. She is nontender to palpation. Full range of motion of her lumbar spine. She denies any increase in pain with facet loading Special Tests: Lhermittes sign was negative Heel Toe walk is normal Left straight leg raise: Negative Right straight leg raise: Negative Special tests Tanya test is negative Ganslen's test is negative SI Joint compression test negative Hannah test negative Piriformis stretch is negative Lower Extremities: Full range of motion bilateral lower extremities. No calf pain or edema. Neuro: Sensation: Intact to lower extremities bilaterally Strength L2 (Psoas): 5/5 on the left and 5/5 on the right. L3 (Quads): 5/5 on the left and 5/5 on the right. L4 (Ant tibialis): 5/5 on the left and 5/5 on the right. L5 (EHL) 5/5 on the left and 5/5 on the right. S1 (Gastroc): 5/5 on the left and 5/5 on the right. DTR L4: (Patellar) Left 2 Right 2 S1: (Achilles) Left 2 Right 2 Babinski Downgoing No pathologic clonus. No involuntary movement. Vital Signs: BMI result Body Mass Index 24.3 Assessment & Plan Assessment & Plan (1) Lumbar radiculopathy: Code(s): M54.16 - Radiculopathy, lumbar region Category: Medical (2) Lumbar spondylosis: Code(s): M47.816 - Spondylosis without myelopathy or radiculopathy, lumbar region Category: Medical Plan Pain Management - Analgesia: The patient is not currently taking any pain medications such as ibuprofen or Tylenol. - Activities of Daily Living: She works, which involves walking, and exercises three times a week. Plan Patient was informed and verbally consented to the use of an ambient scribe for clinic note documentation during this visit. 1. Heel Pain The patient also reported heel pain, and she was advised that this issue is best managed by a batterboard setter (foot doctor). 2. Lumbago With Sciatica, Left Side The patient has a history of left-sided sciatica but is currently asymptomatic with a non-focal neurological exam. To evaluate for an underlying cause of her chronic symptoms, an order for an X-ray of her back will be provided. She is advised to continue her regular exercise regimen and monthly visits to her chiropractor. Should her pain recur and worsen, she should return for follow-up, at which time an MRI could be considered. Discussion Notes I discussed the treatment options for the patient's intermittent back pain radiating into her leg. Given that she is not currently in pain, we agreed to start with an X-ray of her back to assess for underlying issues. 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 I informed her that she should return for re-evaluation if the pain worsens, at which point an MRI could be considered. I clarified that our practice focuses on conditions of the back, knees, shoulders, and elbows, and that her heel pain should be addressed by a batterboard setter. Patient Instructions - You will receive a paper order to get an X-ray of your back. - Continue with your regular exercise and chiropractor visits. - If your pain gets worse, please come back to this clinic for another appointment. - For your heel pain, you should see a foot doctor, also known as a batterboard setter. Orders: Orders XR lumbar spine 4V min Today M54.9 - Dorsalgia, unspecified Coding Level of Care Code Tele New Pt Level 3 (93169) Diagnoses Lumbar radiculopathy M54.16 Lumbar spondylosis M47.816
== END 2025-04-25 11:44 | disposition home or self-care (01) ==
LOC: HO.HPHYS 11:05
PROVIDERS: PCP Physician Assistant; Visit Provider Physician Assistant
DX: M54.16 Radiculopathy, lumbar region (principal); M47.816 Spondylosis without myelopathy or radiculopathy, lumbar region
CPT/HCPCS: 99203